=== PATIENT | female | born 1995 | race Caucasian/White ===

== ENCOUNTER 2017-05-13 20:47 | Emergency (ER) | payer BC ==
[~2017-05-13] VITALS: Ht 170.2 cm; Wt 65.8 kg
[2017-05-13] MEDS ORDERED: BIRTH CONTROL PILL (21:22)
== END 2017-05-13 23:30 | disposition home or self-care (01) ==
LOC: SED 20:47
DX: N76.2 Acute vulvitis (principal); Z86.14 Personal history of Methicillin resistant Staphylococcus aureus infection; Z88.0 Allergy status to penicillin
CPT/HCPCS: 99283